=== PATIENT | male | born 1965 | race African-American/Black ===

== ENCOUNTER → 2016-10-15 | Emergency (ER) | payer OTHER | END | disposition left against medical advice (07) | LOC: ER 19:45 | DX: R03.0 Elevated blood-pressure reading, without diagnosis of hypertension (principal); Z53.21 Procedure and treatment not carried out due to patient leaving prior to being seen by health care provider ==

== ENCOUNTER → 2020-02-06 | Emergency (ER) | payer OTHER ==
[~2020-02-06] VITALS: Ht 188 cm; Wt 124.3 kg
[2020-02-06 18:26] VITALS: BP 178/107
== END | disposition home or self-care (01) ==
LOC: ER 17:55
DX: I10 Essential (primary) hypertension (principal); Z76.0 Encounter for issue of repeat prescription